=== PATIENT | male | born 1975 | race African-American/Black ===

== ENCOUNTER 2019-01-29 16:22 | Emergency (ER) | payer OTHER ==
[~2019-01-29] VITALS: Ht 175.3 cm; Wt 67.6 kg
[2019-01-29 16:29] VITALS: BP 132/93
--- NOTE | 2019-01-29 16:35 | NUR ---
ED Nurse Note: Patient walked into ED from home c/o right 3rd finger swelling for three days, patient reports he has increased warmth and pain. patient is alert awake x4 ambulatory, breathing unlabored and even, speaking in full sentences.
--- NOTE | 2019-01-29 17:05 | Emergency Room Report ---
History of Present Illness General Chief Complaint: Skin Rash/Abscess Source: Patient Present Illness HPI 43-year-old male noticed pain to the third digit on right hand with swelling and slight white discoloration. Patient denies any nail biting, injuries, splinters, recent wounds. Patient reports distal finger as moderately painful, worse with palpation. Patient has not tried anything for pain control. Patient reports no similar symptoms in the past. Patient reports he is right- handed. Patient does not have a history of diabetes Allergies: Coded Allergies: No Known Allergies (Unverified , 01/29/19) Patient History Past Medical History: none Past Surgical History: none Nursing Documentation-[facility] Past Medical History: No History, Except For Hx Hypertension: Yes Review of Systems Constitutional: Denies: chills, fever Respiratory: Denies: cough, shortness of breath Cardiovascular: Denies: chest pain, palpitations Gastrointestinal: Denies: diarrhea, vomiting Musculoskeletal: Denies: back pain, joint pain Skin: Reports: change in color; Denies: rash Physical Exam Vital Signs Date Time Temp Pulse Resp B/P (MAP) Pulse Ox O2 Delivery O2 Flow Rate FiO2 01/29/19 16:29 98.1 101 20 132/93 (106) 97 Room Air Sp02 EP Interpretation: reviewed General Appearance: well appearing, no apparent distress, non-toxic Respiratory: no respiratory distress, speaking full sentences Cardiovascular #1: regular rate, rhythm, normal capillary refill Cardiovascular #2: 2+ radial (R), 2+ radial (L) Skin: other - 3rd digit left hand with edema, tednerness to palpatom of lateral distal finger. Procedures Incision and Drainage Incision and Drainage : Consent: Verbal Site: Third digit right finger Blade Size: 11 Wound Location: other - Third digit right finger Wound's Depth, Shape: superficial Wound Length (cm): 1 Wound Explored: clean Anesthesia: other - None Splint Applied?: No Patient Tolerated: Well Progress Paronychia drained well. Patient tolerated procedure well Medical Decision Making Diagnostic Impression: Primary Impression: Paronychia ER Course 43-year-old male who presents with third digit distal paronychia. Differential includes paronychia versus felon, versus cellulitis Examination consistent with paronychia given infection on the lateral aspect of distal third digit nail. No tenderness to palpation over the pulp of the digit. Patient has no fever. Patient is had I&D performed as below. Patient is stable for outpatient follow-up. Given follow-up instructions and clear wound cleaning precautions. Last Vital Signs Date Time Temp Pulse Resp B/P (MAP) Pulse Ox O2 Delivery O2 Flow Rate FiO2 01/29/19 16:29 98.1 101 20 132/93 (106) 97 Room Air Disposition: HOME, SELF-CARE Referrals: [facility] (PCP) Rj Batista M.D. Jan 29, 2019 17:05
[2019-01-29 17:48] VITALS: BP 132/93
--- NOTE | 2019-01-29 17:49 | NUR ---
ER DISCHARGE NOTE: Patient is cleared to be discharged per LOTUS GORDON , pt is aox4, on room air, with stable vital signs. pt was given dc instructions, pt was able to verbalize understanding, pt id band removed without complications. pt is able to ambulate with steady gait. pt took all belongings.
== END 2019-01-29 17:46 | disposition home or self-care (01) ==
LOC: EMR 16:37
DX: L03.011 Cellulitis of right finger (principal); I10 Essential (primary) hypertension
CPT/HCPCS: 10140; Z7502; 99283